=== PATIENT | male | born 1975 | race Caucasian/White ===

== ENCOUNTER 2017-03-23 09:38 | Day surgery (SDC) | payer OTHER ==
[~2017-03-23 09:38] MED LIST: ACETAMINOPHEN 1,000 MG/100 ML BTL IV ONE; CEFAZOLIN 2 Gram 2 GM/50 ML BAG IVPB ONE
[2017-03-23] MEDS ORDERED: FENTANYL PF 100MCG/2ML VIAL IV ONE (09:39)
[2017-03-23] MEDS ORDERED: DEXAMETHASONE 4 MG/ML 1ML VIAL IVP ONE (09:39)
[2017-03-23] MEDS ORDERED: MIDAZOLAM HCL 2MG/2ML VIAL IV ONE (09:39)
[2017-03-23] MEDS ORDERED: PROPOFOL 10 MG/ML VIAL IV ONE (09:39)
[2017-03-23] MEDS ORDERED: SEVOFLURANE 250 ML INH ONE (09:39)
[2017-03-23] MEDS ORDERED: KETOROLAC 30 MG/ML VIAL IVP ONE (09:39)
[2017-03-23] MEDS ORDERED: LIDOCAINE 2% MDV (20MG/ML) 20ML VIAL IV ONE (09:39)
[2017-03-23 09:57] LABS: BASO % 0.2 % (0-6); EOS % 2.5 % (0-6); GRAN % 61.9 % (47-80); HEMATOCRIT 48.5 % (42.0-52.0); HEMOGLOBIN 15.9 gm/dl (14.0-18.0); LYMPH % 27.2 % (16-45); MEAN CELL VOLUME 87.2 fl (81-97); MEAN CORPUSCULAR HEMOGLOBIN 28.6 pg (27-33); MEAN CORPUSCULAR HGB CONC 32.8 g/dl (32-36); MEAN PLATELET VOLUME 10.5 fl (7.4-10.4); MONO % 8.2 % (0-9); PLATELET COUNT 308 K/uL (130-400); RED BLOOD COUNT 5.56 M/uL (4.40-5.70); RED CELL DISTRIBUTION WIDTH 13.1 % (11.5-14.5); WHITE BLOOD COUNT W/O DIFF 8.8 K/uL (4.2-12.2)
--- NOTE | 2017-03-24 10:30 | Operative Note ---
DATE OF SURGERY: 03/23/2017 Surgeon: Noé Shoemaker DO PREOPERATIVE DIAGNOSIS: Tear of the anterior glenoid labrum, left shoulder. POSTOPERATIVE DIAGNOSIS: Tear of the anterior glenoid labrum, left shoulder. OPERATION: Arthroscopic repair, anterior glenoid labrum, left shoulder. DESCRIPTION OF PROCEDURE: This 41-year-old male was taken to the operating room, placed in the supine position on the operating room table where general anesthesia was induced. The patient was then placed in beach chair position with all bony prominences well padded and head well secured. The left shoulder was prepped with Hibiclens and draped in the usual sterile fashion. A posterior portal was established in the glenohumeral joint and initial evaluation of the joint demonstrated a disruption of the anterior superior glenoid labrum. An anterior portal was established and probing revealed normal appearance of the biceps tendon, subscapularis, glenohumeral ligaments, and supraspinatus and infraspinatus also appeared to be entirely normal. The articular cartilage of the glenoid demonstrated minimal scuffing at the inferior aspect of the glenoid but was otherwise grossly intact. The humeral head appeared to be normal. We probed the labrum and there was disruption of the labrum at about the 11:30 position and a relatively large flap of labral tissue was seen emanating from this location. This was debrided with a rotating shaver and probing revealed detachment at that location. We lifted the biceps anchor and could clearly see that there was attachment to the glenoid of the biceps anchor, and this was followed around posteriorly. There was fraying, rather extensive fraying of the labrum from about the 12- to the 3-o'clock position, and this was all visualized and debrided but we did not demonstrate disruption from the bony glenoid. We felt that repair of the labrum at the 11:30 position was appropriate and we subsequently passed a #2 FiberWire suture. Once the tissue had been secured, it was anchored to the glenoid utilizing a 3.5 PushLock anchor. The repair was seen to be satisfactory. I did not feel that any further hardware was necessary. Subsequently the shoulder was irrigated. The instruments were removed. Wounds closed with 4-0 nylon suture. The patient was taken to the recovery room in satisfactory condition. GROSS PATHOLOGY: This patient demonstrated tearing of the anterior superior glenoid labrum at about the 11:30 position just anterior to the biceps anchor. The biceps itself appeared to be normal, as did the attachment site but the tearing was just anterior to the biceps and was repaired with a single 3.5 PushLock anchor with a #2 FiberWire suture. ZARINA
== END 2017-03-23 14:15 | disposition home or self-care (01) ==
LOC: SUR 09:38
PROVIDERS: ATTEND Orthopaedic Surgery
DX: S43.432A Superior glenoid labrum lesion of left shoulder, initial encounter (principal); Y93.64 Activity, baseball
CPT/HCPCS: 85025; 29807; 01630; 64415; J1885; J0690